=== PATIENT | female | born 1955 | race Caucasian/White ===

== ENCOUNTER 2020-09-11 05:03 | Observation (INO) | payer MEDICARE, OTHER ==
[2020-09-11] MEDS ORDERED: Dexamethasone 10 MG/ML SDV IVPUSH ONE (05:28)
[2020-09-11] MEDS ORDERED: cefTRIAXone 2 GM in Premix Bag 1 BAG IV ONE (05:28)
[2020-09-11] MEDS ORDERED: Azithromycin 250 MG Tab PO ONE (05:28)
[2020-09-11] MEDS ORDERED: Acetaminophen 325 MG Tab PO ONE (05:28)
--- NOTE | 2020-09-11 06:15 | EDM.PDOC ---
ED HPI GENERAL MEDICAL PROBLEM - General Chief Complaint: Respiratory Problem Stated Complaint: COLD, COUGH Time Seen by Provider: 09/11/20 05:05 - History of Present Illness INITIAL COMMENTS - FREE TEXT/NARRATIVE: HISTORY AND PHYSICAL: History of present illness: 65-year-old female who presents to the emergency department on her eighth day of a bad cold. She reports that she has had cough, fever, no phlegm production, and some myalgias. She now is having trouble breathing and comes emergency department for evaluation. She denies any change in her sense of smell or taste. No sore throat. No chest pain. Does not know of any known exposures to COVID-19. Currently having pandemic COVID-19 outbreak in her area. Oxygen saturation noted to be 91 to 92% on room air. She has a past medical history of hypertension, diabetes mellitus, brain injury. She is allergic to penicillin. Review of systems: A 10-point review of systems, other than pertinent positives and negatives as stated per HPI, is otherwise negative. Past medical history: As per history of present illness and as reviewed below otherwise noncontributory. Surgical history: As per history of present illness and as reviewed below otherwise noncon tributory. Social history: No reported history of drug or alcohol abuse. Family history: As per history of present illness and as reviewed below otherwise noncontributory. Physical exam: VITAL SIGNS: Reviewed. GENERAL: Mild to moderate distress. Mild tachypnea. HEAD: No signs of head trauma. EYES: Pupils are equal. Extraocular motions intact. EARS: Hearing grossly intact. MOUTH: Oropharynx is normal. NECK: No adenopathy, no JVD. CHEST: Tachypnea, no audible adventitious breath sounds, no accessory muscle use. CARDIAC: Regular rate and rhythm. Normal S1 and S2, without murmurs, gallops, or rubs. VASCULAR: Peripheral pulses normal and equal in all extremities. ABDOMEN: Soft, without detectable tenderness. No sign of distention. No rebound or guarding, and no masses palpated. MUSCULOSKELETAL: Good range of motion of all major joints. Extremities without clubbing, cyanosis or edema. NEUROLOGIC EXAM: Alert and oriented x 3. No focal sensory or motor deficits. Speech normal. Follows commands. PSYCHIATRIC: Mood normal. SKIN: No rash or lesions. Initial Differential Diagnosis & Plan: Shortness of breath: Differential diagnosis includes asthma, COPD, pneumonia, congestive heart failure, anemia, thyroid disease, acidosis, pulmonary embolism, myocardial infarction, sepsis. Likely this is pandemic COVID-19. We will evaluate for pneumonia, other causes, and metabolic disturbances. No pleuritic type chest pain. Oxygen saturation is mildly low. Labs, chest x-ray, EKG and reevaluate. Empiric antibiotics. Definitive disposition and diagnosis as appropriate pending reevaluation and review of above. - Related Data Allergies Allergy/AdvReac Type Severity Reaction Status Date / Time Penicillins Allergy Other Verified 09/11/20 14:21 Home Meds: Home Meds Lisinopril/Hydrochlorothiazide [Lisinopril-Hctz 20-25 mg Tab] 20 - 25 mg PO DAILY 12/25/16 [History] Metoprolol Succinate [Toprol XL 100mg] 100 mg PO DAILY 12/25/16 [History] atorvaSTATin [Lipitor] 10 mg PO BEDTIME 12/25/16 [History] metFORMIN HCl [Metformin HCl] 1,000 mg PO BID 12/25/16 [History] Past Medical History HEENT History: Reports: None Cardiovascular History: Reports: Hypertension Respiratory History: Reports: Pneumonia, Recurrent Gastrointestinal History: Reports: Bowel Obstruction Genitourinary History: Reports: None 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: Musculoskeletal History: Reports: None Neurological History: Reports: Other (See Below) Other Neuro History: Brain Aneurysm Psychiatric History: Reports: None Endocrine/Metabolic History: Reports: Diabetes, Type II Insulin Pump Model and Out And 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 Maker 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: None Hematologic History: Reports: None Immunologic History: Reports: None Oncologic (Cancer) History: Reports: None Dermatologic History: Reports: None - Infectious Disease History Infectious Disease History: Reports: None - Past Surgical History Head Surgeries/Procedures: Reports: None Female Surgical History: Reports: Hysterectomy Neurological Surgical History: Reports: Other (See Below) Other Neurological Surgeries/Procedures: Brain Surgery Social & Family History - Family History Family Medical History: Noncontributory - Tobacco Use Tobacco Use Status *Q: Never Tobacco User - Caffeine Use Caffeine Use: Reports: Tea - Recreational Drug Use Recreational Drug Use: No ED ROS GENERAL - Review of Systems Review Of Systems: See Below (noted) ED EXAM, GENERAL - Physical Exam Exam: See Below (noted) #1 Interpretation EKG Interpretation Comments: 12 lead EKG interpretation Obtained: September 11, 2020 at 6:19 AM Rhythm: Sinus Rate: 78 [place]: Normal Intervals: Normal ST/T Segments: No acute ischemic changes Interpretation: Sinus Rhythm Course - Vital Signs Last Recorded V/S: Last Vital Signs Temp 96.7 F L 09/11/20 20:20 Pulse 86 09/11/20 20:20 Resp 16 09/11/20 20:20 BP 131/61 09/11/20 20:20 Pulse Ox 92 L 09/11/20 20:20 - Orders/Labs/Meds Orders: Active Orders 24 hr Category Date Time Status EKG 12 Lead [EKG Documentation Completion] [RC] STAT Care 09/11/20 05:28 Active Medication Orders Atorvastatin Calcium (Lipitor) 20 mg PO BEDTIME [facility] Last Admin: 09/11/20 20:22 Dose: 20 mg Documented by: PEPE Dexamethasone (Dexamethasone) 6 mg PO DAILY [facility] Dextrose/Water (Dextrose 50% In Water) 50 ml IV ASDIRECTED PRN PRN Reason: Hypoglycemia Enoxaparin Sodium (Lovenox) 40 mg SUBCUT Q24H [facility] Last Admin: 09/11/20 12:45 Dose: 40 mg Documented by: MELLO Glucagon (Glucagen) 1 mg IM ASDIRECTED PRN PRN Reason: Hypoglycemia Lisinopril/HCTZ (Lisinopril-Hctz 10-12.5 Mg) 2 tab PO DAILY [facility] Last Admin: 09/11/20 12:45 Dose: 2 tab Documented by: MLELO Remdesivir 100 mg/ Sodium (Chloride) 100 mls @ 100 mls/hr IV Q24H [facility] Stop: 09/15/20 12:14 Insulin Aspart (Novolog) [facility]; Protocol Last Admin: 09/11/20 18:05 Dose: 1 unit Documented by: Admin: 09/11/20 12:46 Dose: 1 unit Documented by: MELLO Metoprolol Succinate (Toprol Xl) 100 mg PO DAILY [facility] Labs: Laboratory Tests 09/11/20 09/11/20 09/11/20 Range/Units 06:00 06:00 06:00 WBC 14.31 H (4.0-11.0) K/uL RBC 4.85 (4.30-5.90) M/uL Hgb 14.6 (12.0-16.0) g/dL Hct 45.0 (36.0-46.0) % MCV 92.8 (80.0-98.0) fL MCH 30.1 (27.0-32.0) pg MCHC 32.4 (31.0-37.0) g/dL RDW Std Deviation 46.5 (28.0-62.0) fl RDW Coeff of Maricel 14 (11.0-15.0) % Plt Count 278 (150-400) K/uL MPV 11.00 (7.40-12.00) fL Neut % (Auto) 65.6 (48.0-80.0) % Lymph % (Auto) 18.0 (16.0-40.0) % Young % (Auto) 9.0 (0.0-15.0) % Eos % (Auto) 7.1 H (0.0-7.0) % Baso % (Auto) 0.3 (0.0-1.5) % Neut # (Auto) 9.4 H (1.4-5.7) K/uL Lymph # (Auto) 2.6 H (0.6-2.4) K/uL Young # (Auto) 1.3 H (0.0-0.8) K/uL Eos # (Auto) 1.0 H (0.0-0.7) K/uL Baso # (Auto) 0.1 (0.0-0.1) K/uL Nucleated RBC % 0.0 /100WBC Nucleated RBCs # 0 K/uL D-Dimer, Quantitative 0.48 (0.0-0.50) mg/L FEU VBG pH (7.31-7.41) VBG pCO2 (35-45) mmHG VBG pO2 (30-40) mmHG VBG HCO3 (22-30) mEq/L VBG Total CO2 (41-51) mmol/L VBG Base Excess (-3.0-3.0) Sodium 140 (136-145) mmol/L Potassium 4.4 (3.5-5.1) mmol/L Chloride 101 (98-107) mmol/L Carbon Dioxide 30.1 (21.0-32.0) mmol/L BUN 12 (7.0-18.0) mg/dL Creatinine 0.7 (0.6-1.0) mg/dL Est Cr Clr Drug Dosing 83.73 mL/min Estimated GFR (MDRD) > 60.0 ml/min Glucose 145 H (74-106) mg/dL Calcium 9.7 (8.5-10.1) mg/dL Total Bilirubin 0.5 (0.2-1.0) mg/dL AST 64 H (15-37) IU/L ALT 77 H (14-63) IU/L Alkaline Phosphatase 113 (46-116) U/L Troponin I < 0.050 (0.000-0.056) ng/mL Total Protein 7.1 (6.4-8.2) g/dL Albumin 3.6 (3.4-5.0) g/dL Globulin 3.5 (2.6-4.0) g/dL Albumin/Globulin Ratio 1.0 (0.9-1.6) SARS-CoV-2 RNA (JOHN) (NEGATIVE) 09/11/20 09/11/20 Range/Units 06:00 06:25 WBC (4.0-11.0) K/uL RBC (4.30-5.90) M/uL Hgb (12.0-16.0) g/dL Hct (36.0-46.0) % MCV (80.0-98.0) fL MCH (27.0-32.0) pg MCHC (31.0-37.0) g/dL RDW Std Deviation (28.0-62.0) fl RDW Coeff of Maricel (11.0-15.0) % Plt Count (150-400) K/uL MPV (7.40-12.00) fL Neut % (Auto) (48.0-80.0) % Lymph % (Auto) (16.0-40.0) % Young % (Auto) (0.0-15.0) % Eos % (Auto) (0.0-7.0) % Baso % (Auto) (0.0-1.5) % Neut # (Auto) (1.4-5.7) K/uL Lymph # (Auto) (0.6-2.4) K/uL Young # (Auto) (0.0-0.8) K/uL Eos # (Auto) (0.0-0.7) K/uL Baso # (Auto) (0.0-0.1) K/uL Nucleated RBC % /100WBC Nucleated RBCs # K/uL D-Dimer, Quantitative (0.0-0.50) mg/L FEU VBG pH 7.39 (7.31-7.41) VBG pCO2 54 H (35-45) mmHG VBG pO2 37 (30-40) mmHG VBG HCO3 33 H (22-30) mEq/L VBG Total CO2 29 L (41-51) mmol/L VBG Base Excess 5.7 H (-3.0-3.0) Sodium (136-145) mmol/L Potassium (3.5-5.1) mmol/L Chloride (98-107) mmol/L Carbon Dioxide (21.0-32.0) mmol/L BUN (7.0-18.0) mg/dL Creatinine (0.6-1.0) mg/dL Est Cr Clr Drug Dosing mL/min Estimated GFR (MDRD) ml/min Glucose (74-106) mg/dL Calcium (8.5-10.1) mg/dL Total Bilirubin (0.2-1.0) mg/dL AST (15-37) IU/L ALT (14-63) IU/L Alkaline Phosphatase (46-116) U/L Troponin I (0.000-0.056) ng/mL Total Protein (6.4-8.2) g/dL Albumin (3.4-5.0) g/dL Globulin (2.6-4.0) g/dL Albumin/Globulin Ratio (0.9-1.6) SARS-CoV-2 RNA (JOHN) POSITIVE H (NEGATIVE) Meds: Medications Generic Name Dose Route Start Last Admin Trade Name Freq PRN Reason Stop Dose Admin Atorvastatin Calcium 20 mg 09/11/20 21:00 09/11/20 20:22 Lipitor PO 20 mg BEDTIME CARINA Administration Dexamethasone 6 mg 09/12/20 09:00 Dexamethasone PO DAILY [facility] Dextrose/Water 50 ml 09/11/20 11:15 Dextrose 50% In Water IV ASDIRECTED PRN Hypoglycemia Enoxaparin Sodium 40 mg 09/11/20 11:15 09/11/20 12:45 Lovenox SUBCUT 40 mg Q24H CARINA Administration Glucagon 1 mg 09/11/20 11:15 Glucagen IM ASDIRECTED PRN Hypoglycemia Lisinopril/HCTZ 2 tab 09/11/20 12:00 09/11/20 12:45 Lisinopril-Hctz 10-12.5 Mg PO 2 tab DAILY [facility] Administration Remdesivir 100 mg/ Sodium 100 mls @ 100 mls/hr 09/12/20 11:15 Chloride IV 09/15/20 12:14 Q24H CARINA Insulin Aspart 0 unit 09/11/20 11:30 09/11/20 18:05 Novolog SUBCUT 1 unit TIDAC CARINA Administration Protocol Metoprolol Succinate 100 mg 09/12/20 09:00 Toprol Xl PO DAILY [facility] Discontinued Medications Generic Name Dose Route Start Last Admin Trade Name Freq PRN Reason Stop Dose Admin Acetaminophen 975 mg 09/11/20 05:28 09/11/20 06:09 Tylenol PO 09/11/20 05:29 975 mg NOW ONE Administration Azithromycin 500 mg 09/11/20 05:28 09/11/20 06:09 Zithromax PO 09/11/20 05:29 500 mg ONETIME ONE Administration Dexamethasone 10 mg 09/11/20 05:28 09/11/20 06:10 Dexamethasone IVPUSH 09/11/20 05:29 10 mg ONETIME ONE Administration Ceftriaxone Sodium/Dextrose 2 50 mls @ 100 mls/hr 09/11/20 05:28 09/11/20 06:09 gm/ Premix IV 09/11/20 05:57 100 mls/hr ONETIME ONE Administration Remdesivir 200 mg/ Sodium 250 mls @ 250 mls/hr 09/11/20 06:55 09/11/20 08:32 Chloride IV 09/11/20 06:56 250 mls/hr ONETIME ONE Administration - Re-Assessments/Exams Free Text/Narrative Re-Assessment/Exam: 09/11/20 06:[address] Soliman. We will admit the patient because she has an oxygen requirement 2 L/min by nasal cannula. I will try and give remdesivir in the emergency department 200 mg IV. I have already given empiric antibiotics and steroids. He did not request a chest CT which I feel is reasonable. My diagnostic impression: 1. Acute febrile illness with hypoxemia 2. Presumed COVID-19 infection/PUI Departure - Departure Time of Disposition: 20:25 Disposition: Refer to Observation Clinical Impression: Hypoxia, COVID-19 - Discharge Information Sepsis Event Note (ED) - Evaluation Sepsis Screening Result: No Definite Risk - My Orders Last 24 Hours: My Active Orders 09/11/20 05:28 EKG 12 Lead [EKG Documentation Completion] [RC] STAT - Assessment/Plan Last 24 Hours: My Active Orders 09/11/20 05:28 EKG 12 Lead [EKG Documentation Completion] [RC] STAT
--- NOTE | 2020-09-11 06:43 | CR ---
INDICATION: Atypical chest pain TECHNIQUE: Chest 1 view COMPARISON: None FINDINGS: Cardiovascular and mediastinum: Heart size and vasculature are normal in caliber and appearance. Lungs and pleural spaces: Lungs are clear. No sign of infiltrate or mass. No sign of pleural effusion. No pneumothorax. Bones and soft tissues: No significant findings. IMPRESSION: Negative chest. Dictated by Mj Hernandez MD @ Sep 11 2020 6:40AM Signed by Dr. Mj Hernandez @ Sep 11 2020 6:40AM
[2020-09-11 06:52] LABS: BLOOD UREA NITROGEN,BUN 12 mg/dL (7.0-18.0); CARBON DIOXIDE,CO2 30.1 mmol/L (21.0-32.0); CHLORIDE,CL 101 mmol/L (98-107); GLUCOSE RANDOM 145 mg/dL (74-106); POTASSIUM,K 4.4 mmol/L (3.5-5.1); SODIUM,NA 140 mmol/L (136-145)
--- NOTE | 2020-09-11 08:23 | PCM.SN.2 ---
- Free Text/Narrative Note: I spoke with the patient regarding remdesivir use and adverse reactiions. Patient is agreeable to taking the medication
[2020-09-11] MEDS ORDERED: Glucagon,Human Recombinant 1 MG Vial IM PRN (11:15)
[2020-09-11] MEDS ORDERED: 50% Dextrose in Water 50 ML Syringe IV PRN (11:15)
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
[2020-09-11] MEDS: Enoxaparin 40 MG/0.4 ML Syringe SUBCUT SCH (12:45)
[2020-09-11] MEDS: Lisinopril/Hydrochlorothiazide 10-12.5 MG Tab PO SCH (12:45)
[2020-09-11] MEDS: Insulin Aspart 100 Units/ML 3 ML Pen SUBCUT SCH ×2 (12:46→18:05)
[2020-09-11] MEDS ORDERED: atorvaSTATin 20 MG Tab PO SCH (21:00)
[2020-09-12 06:59] LABS: BLOOD UREA NITROGEN,BUN 18 mg/dL (7.0-18.0); CARBON DIOXIDE,CO2 29.9 mmol/L (21.0-32.0); CHLORIDE,CL 100 mmol/L (98-107); GLUCOSE RANDOM 149 mg/dL (74-106); POTASSIUM,K 3.8 mmol/L (3.5-5.1); SODIUM,NA 137 mmol/L (136-145)
[2020-09-12] MEDS: Insulin Aspart 100 Units/ML 3 ML Pen SUBCUT SCH ×2 (06:59→13:23)
[2020-09-12] MEDS ORDERED: Dexamethasone 4 MG Tab PO SCH (09:00)
[2020-09-12] MEDS ORDERED: Metoprolol Succinate 50 MG Tab.ER PO SCH (09:00)
[2020-09-12] MEDS: Lisinopril/Hydrochlorothiazide 10-12.5 MG Tab PO SCH (09:28)
[2020-09-12] MEDS ORDERED: REMDESIVIR (EUA) 100 MG in Sodium Chloride 0.9% 100 ML IV SCH (11:15)
[2020-09-12] MEDS: Enoxaparin 40 MG/0.4 ML Syringe SUBCUT SCH (11:48)
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
[2020-09-12 14:33] VITALS: BP 137/78; PULSE 85
== END 2020-09-12 14:30 | disposition home or self-care (01) ==
LOC: MW.ED 05:03 → MW.MS 07:19
PROVIDERS: ADMIT Internal Medicine; ATTEND Internal Medicine
DX: U07.1 COVID-19 (principal); I10 Essential (primary) hypertension; R09.02 Hypoxemia; J02.9 Acute pharyngitis, unspecified; E11.9 Type 2 diabetes mellitus without complications; Z79.899 Other long term (current) drug therapy; Z79.4 Long term (current) use of insulin; Z88.0 Allergy status to penicillin; Z98.890 Other specified postprocedural states
CPT/HCPCS: 36415; 71045; 80053; 81001; 82803; 82962; 84484; 85025; 85379; 93005; 96365; 96367; 96375; 99285; A9270; J0696; J1100; J1650; J1815; J7050; J8540; U0002; 93010; 96372; 99284

== ENCOUNTER 2023-10-15 11:10 | Emergency (ER) | payer MEDICARE, OTHER ==
[~2023-10-15 11:10] MED LIST: EPINEPHrine 1:10,000 1 MG/10 ML Syringe IVPUSH ONE; Sodium Bicarbonate 8.4% 50 MEQ/50 ML Syringe IVPUSH ONE
[2023-10-15] MEDS ORDERED: Atropine 0.1 MG/ML 10 ML Syringe IVPUSH ONE (11:12)
[2023-10-15] MEDS ORDERED: Norepinephrine Bit/D5W Premix 250 ML ONE ×2 (11:14→14:08)
[2023-10-15] MEDS ORDERED: Calcium Gluconate 10% 1 GM/10 ML SDV IVPUSH ONE (11:15)
[2023-10-15] MEDS ORDERED: Calcium Chloride 10% 1 GM/10 ML Syringe IVPUSH ONE (11:15)
[2023-10-15] MEDS: Norepinephrine Bit/D5W Premix 250 ML IV SCH ×2 (11:18→15:58)
[2023-10-15] MEDS ORDERED: EPINEPHrine 1:10,000 1 MG/10 ML Syringe IVPUSH ONE ×3 (11:20→11:44)
[2023-10-15] MEDS ORDERED: Sodium Chloride 0.9% 1,000 ML IV ONE ×2 (11:20)
[2023-10-15 11:35] LABS: HEMATOCRIT 38.5 % (37.0-47.0); HEMOGLOBIN 12.2 g/dL (12.0-16.0); MEAN CORPUSCULAR HGB CONC 31.7 g/dL (32.0-36.0); MEAN CORPUSCULAR VOLUME 91.7 fL (83.0-99.0); MEAN PLATELET VOLUME 11.4 fL (9.4-12.3); NRBC ABSOLUTE 0.11 K/uL (0.00-0.02); NRBC PERCENT 0.9 /100WBC (0.0-0.2); PLATELET COUNT,PLT 138 K/uL (150-400); WHITE BLOOD CELL COUNT,WBC 12.05 K/uL (3.9-11.3)
[2023-10-15] MEDS ORDERED: Sodium Bicarbonate 8.4% 50 MEQ/50 ML Syringe IVPUSH ONE (11:37)
[2023-10-15] MEDS ORDERED: DOBUTamine/Dextrose 5%-Water 250 MG/250 ML BAG IV ONE ×2 (11:44→15:00)
[2023-10-15] MEDS ORDERED: Tenecteplase 50 MG Kit ONE (11:46)
[2023-10-15] MEDS ORDERED: Tenecteplase 50 MG Kit IV ONE (11:52)
[2023-10-15 11:54] LABS: INR 1.09 (0.86-1.11); PTT,PARTIAL THROMBOPLSTIN TIME 28.2 SEC (23.9-30.7); SEG NEUTROPHILS ABSOLUTE MAN 4.46 K/uL (1.80-7.70); SEG NEUTROPHILS PERCENT MAN 37 % (41-71)
[2023-10-15 11:56] LABS: EOSINOPHILS ABSOLUTE MAN 0.48 K/uL (0.00-0.45); EOSINOPHILS PERCENT MAN 4 % (0-6); LYMPHOCYTES ABSOLUTE MAN 6.39 K/uL (1.00-4.80); LYMPHOCYTES PERCENT MAN 53 % (24-44); MONOCYTES ABSOLUTE MAN 0.72 K/uL (0.00-0.80); MONOCYTES PERCENT MAN 6 % (0-8)
[2023-10-15 11:57] LABS: REACTIVE LYMPHOCYTES FEW
[2023-10-15 12:01] LABS: A/G RATIO 0.9 (0.9-1.6); BILIRUBIN TOTAL 0.9 mg/dL (0.2-1.0); CALCIUM 9.4 mg/dL (8.5-10.1); CREATININE 1.6 mg/dL (0.6-1.0); EST CRCL DRUG DOSING (CG) 30.28 mL/min; MAGNESIUM 2.1 mg/dL (1.8-2.4); POTASSIUM,K 4.3 mmol/L (3.5-5.1); PROTEIN TOTAL,TP 6.3 g/dL (6.4-8.2)
[2023-10-15 12:01] LABS: PCO2 ARTERIAL 86 mmHG (35-45); PO2 ARTERIAL 77 mmHG (80-105)
[2023-10-15] MEDS ORDERED: Furosemide 40 MG/4 ML VIAL IVPUSH ONE (12:07)
[2023-10-15] MEDS ORDERED: Insulin Regular, Human 100 Units/ML 10 ML Vial IVPUSH ONE (12:08)
[2023-10-15] MEDS ORDERED: fentaNYL/Normal Saline 2,500 MCG in Premix Bag 1 BAG IV PRN (12:11)
[2023-10-15] MEDS ORDERED: fentaNYL/Normal Saline 250 ML ONE (12:11)
[2023-10-15] MEDS ORDERED: Sodium Bicarbonate 100 MEQ in Dextrose 5% in Water 100 ML IV ONE ×2 (12:17)
[2023-10-15] MEDS: Potassium Chloride 100 ML IV SCH ×2 (12:30→14:13)
[2023-10-15 12:51] LABS: A/G RATIO 0.7 (0.9-1.6); BILIRUBIN TOTAL 0.7 mg/dL (0.2-1.0); CALCIUM 9.1 mg/dL (8.5-10.1); CARBON DIOXIDE,CO2 17.1 mmol/L (21.0-32.0); CREATININE 1.8 mg/dL (0.6-1.0); EST CRCL DRUG DOSING (CG) 26.92 mL/min; POTASSIUM,K 3.1 mmol/L (3.5-5.1); PROTEIN TOTAL,TP 4.8 g/dL (6.4-8.2)
[2023-10-15 12:51] LABS: PCO2 ARTERIAL 63 mmHG (35-45); PO2 ARTERIAL 125 mmHG (80-105)
[2023-10-15 12:52] LABS: BICARBONATE,ARTERIAL 16 mEq/L (22-26)
[2023-10-15] MEDS ORDERED: Heparin Sodium 5,000 Units/ML Vial IVPUSH ONE (13:08)
[2023-10-15] MEDS ORDERED: Aspirin 300 MG Supp RECTAL STA (13:10)
[2023-10-15] MEDS ORDERED: Heparin Sodium/0.45% NaCl 500 ML IV SCH (13:15)
[2023-10-15] MEDS ORDERED: Sodium Chloride 0.9% 1,000 ML IV STA (13:26)
[2023-10-15 13:42] LABS: BICARBONATE,ARTERIAL 23 mEq/L (22-26); PCO2 ARTERIAL 57 mmHG (35-45); PO2 ARTERIAL 110 mmHG (80-105)
[2023-10-15] MEDS ORDERED: DOBUTamine/Dextrose 5%-Water 250 MG/250 ML BAG IV SCH ×2 (15:00)
== END 2023-10-15 16:00 ==
LOC: MW.ED 11:10
DX: I46.9 Cardiac arrest, cause unspecified (principal); I10 Essential (primary) hypertension; E78.00 Pure hypercholesterolemia, unspecified; E11.9 Type 2 diabetes mellitus without complications; Z90.710 Acquired absence of both cervix and uterus; Z79.84 Long term (current) use of oral hypoglycemic drugs; Z79.82 Long term (current) use of aspirin; Z79.899 Other long term (current) drug therapy; Z88.0 Allergy status to penicillin
CPT/HCPCS: 31500; 36415; 36556; 36600; 43752; 51702; 71045; 80053; 80307; 82009; 82803; 82947; 83690; 83735; 83880; 84484; 85025; 85610; 85730; 87040; 87154; 92950; 92977; 93005; 96365; 96366; 96368; 96375; 96376; 99291; A9270; J0171; J0461; J1250; J1644; J1815; J1940; J3101; J3480; J7030; J7060; 87077; 87186; J3490